=== PATIENT | female | born 1955 | race Caucasian/White ===

== ENCOUNTER 2020-11-29 09:53 | Outpatient (CLI) | payer MEDICARE | END 2020-11-29 09:54 | disposition home or self-care (01) | LOC: CSHMAMMO 09:53 | PROVIDERS: ATTEND Internal Medicine | DX: Z12.31 Encounter for screening mammogram for malignant neoplasm of breast (principal); M81.0 Age-related osteoporosis without current pathological fracture; M85.80 Other specified disorders of bone density and structure, unspecified site | CPT/HCPCS: 77063; 77067; 77080 ==